=== PATIENT | male | born 1975 | race African-American/Black ===

== ENCOUNTER 2023-02-02 19:23 | Inpatient (IN) | payer SELFPAY ==
[2023-02-02 20:01] LABS: #Monocytes 1.1 10x3/uL (0.0-1.1); #Neutrophils 8.2 10x3/uL (1.5-8.4); %Basophils 0.4 % (0.0-2.0); %Eosinophils 0.2 % (0.0-6.0); %Lymphocytes 12.4 % (18.0-47.0); %Monocytes 10.1 % (0.0-10.0); %Neutrophils 76.3 % (40.0-75.0); Hematocrit 41.8 % (38.8-50.0); Hemoglobin 15.3 g/dL (13.5-17.5); Mean Corpuscular HGB CONC 36.6 g/dL (32.0-36.0); Mean Corpuscular Hemoglobin 34.4 pg (27.0-33.0); Mean Corpuscular Volume 93.9 fl (81.2-95.1); Platelet Count 345 10x3/uL (150-450); RBC Distribution Width 13.2 % (11.5-14.5); Red Blood Cell (RBC) Count 4.45 10x6/uL (4.32-5.72); White Blood Cell (WBC) Count 10.8 10x3/uL (3.5-10.5)
[2023-02-02 20:13] LABS: ALT (SGPT) 45 U/L (8-55); AST (SGOT) 113 U/L (5-34); Alkaline Phosphatase 110 U/L (40-110); Anion Gap 27 mmol/L (10-20); BUN (Urea Nitrogen) 31 mg/dL (8.9-20.6); Bilirubin, Total 3.8 mg/dL (0.2-1.2); Calc. Creatinine Clearance 0 mL/min (70-130); Calcium 9.7 mg/dL (7.8-10.44); Carbon Dioxide 16 mmol/L (22-29); Chloride 93 mmol/L (98-107); Estimated GFR 11; Globulin 4.6 g/dL (2.4-3.5); Glucose 143 mg/dL (70-105); Potassium 2.8 mmol/L (3.5-5.1); Protein, Total 9.6 g/dL (6.0-8.3); Sodium 133 mmol/L (136-145)
[2023-02-02 20:19] LABS: Troponin I 0.256 ng/mL (< 0.028)
[2023-02-02 20:37] LABS: Magnesium 1.8 mg/dL (1.6-2.6)
[2023-02-02 20:41] LABS: Acetaminophen Less than 10 mcg/mL (10.0-30.0); Alcohol Less than 10.0 mg/dL (Less than 10); Salicylate Less than 8.0 mg/dL (15.0-30.0)
[2023-02-02 20:50] LABS: CK (CPK) 5766 U/L (30-200)
[2023-02-02] MEDS ORDERED: Heparin 25,000 units/D5W 500 ML ONE (21:50)
[2023-02-02 21:57] LABS: INR-International Normal Ratio 1.1; PTT 29.1 sec (22.0-33.0); Prothrombin Time 11.9 sec (9.5-12.1)
[2023-02-02] MEDS ORDERED: Potassium Chloride 20 MEQ in Premix Bag 1 BAG IVPB SCH (22:00)
[2023-02-02] MEDS ORDERED: Acetaminophen 325 MG TAB PO PRN (22:30)
[2023-02-02] MEDS ORDERED: Morphine 2 MG/ML VIAL SLOW IVP PRN (22:37)
[2023-02-02] MEDS ORDERED: Heparin 25,000 units/D5W 500 ML IVPB SCH (22:45)
[2023-02-02] MEDS ORDERED: Heparin 10,000 UNITS/ 10 ML VIAL SLOW IVP SCH (22:45)
[2023-02-02 22:57] LABS: Troponin I 0.265 ng/mL (< 0.028)
[2023-02-02 22:58] LABS: Anion Gap 15 mmol/L (10-20); BUN (Urea Nitrogen) 10 mg/dL (8.9-20.6); Calc. Creatinine Clearance 0 mL/min (70-130); Calcium 8.9 mg/dL (7.8-10.44); Carbon Dioxide 20 mmol/L (22-29); Chloride 107 mmol/L (98-107); Estimated GFR 105; Glucose 93 mg/dL (70-105); Sodium 138 mmol/L (136-145)
[2023-02-02 22:59] LABS: Hematocrit 40.9 % (38.8-50.0); Hemoglobin 14.8 g/dL (13.5-17.5); Platelet Count 323 10x3/uL (150-450)
[2023-02-02 23:43] LABS: Anion Gap 27 mmol/L (10-20); BUN (Urea Nitrogen) 33 mg/dL (8.9-20.6); Calc. Creatinine Clearance 0 mL/min (70-130); Calcium 9.6 mg/dL (7.8-10.44); Carbon Dioxide 18 mmol/L (22-29); Chloride 92 mmol/L (98-107); Estimated GFR 11; Glucose 94 mg/dL (70-105); Potassium 3.5 mmol/L (3.5-5.1); Sodium 133 mmol/L (136-145)
[2023-02-03 00:07] LABS: Troponin I 0.253 ng/mL (< 0.028)
[2023-02-03] MEDS: Sodium Chloride 0.9% 1,000 ML IV SCH ×3 (00:27→10:43)
[2023-02-03 02:06] VITALS: BMI 27.3
[2023-02-03 02:18] LABS: #Monocytes 1.4 10x3/uL (0.0-1.1); #Neutrophils 8.1 10x3/uL (1.5-8.4); %Basophils 0.3 % (0.0-2.0); %Monocytes 11.5 % (0.0-10.0); %Neutrophils 68.6 % (40.0-75.0); Hematocrit 40.6 % (38.8-50.0); Hemoglobin 14.4 g/dL (13.5-17.5); Mean Corpuscular HGB CONC 35.5 g/dL (32.0-36.0); Mean Corpuscular Hemoglobin 34.3 pg (27.0-33.0); Mean Corpuscular Volume 96.7 fl (81.2-95.1); Mean Platelet Volume 9.4 fl (7.4-10.4); Platelet Count 282 10x3/uL (150-450); RBC Distribution Width 13.3 % (11.5-14.5); White Blood Cell (WBC) Count 11.8 10x3/uL (3.5-10.5)
[2023-02-03 02:39] LABS: Anion Gap 23 mmol/L (10-20); BUN (Urea Nitrogen) 35 mg/dL (8.9-20.6); Calc. Creatinine Clearance 18 mL/min (70-130); Calcium 8.8 mg/dL (7.8-10.44); Carbon Dioxide 19 mmol/L (22-29); Chloride 93 mmol/L (98-107); Estimated GFR 11; Glucose 104 mg/dL (70-105); Potassium 3.8 mmol/L (3.5-5.1); Sodium 131 mmol/L (136-145)
[2023-02-03 02:48] LABS: Troponin I 0.235 ng/mL (< 0.028)
[2023-02-03 03:14] LABS: Magnesium 1.9 mg/dL (1.6-2.6); Phosphorus 6.3 mg/dL (2.3-4.7)
[2023-02-03 06:45] LABS: Anion Gap 20 mmol/L (10-20); BUN (Urea Nitrogen) 36 mg/dL (8.9-20.6); Calc. Creatinine Clearance 20 mL/min (70-130); Calcium 8.5 mg/dL (7.8-10.44); Carbon Dioxide 19 mmol/L (22-29); Chloride 96 mmol/L (98-107); Estimated GFR 12; Glucose 93 mg/dL (70-105); Potassium 3.3 mmol/L (3.5-5.1); Sodium 132 mmol/L (136-145)
[2023-02-03] MEDS ORDERED: Potassium Chloride 20 MEQ TAB PO SCH (08:00)
[2023-02-03 09:38] LABS: Anion Gap 16 mmol/L (10-20); BUN (Urea Nitrogen) 37 mg/dL (8.9-20.6); CK (CPK) 3726 U/L (30-200); Calc. Creatinine Clearance 23 mL/min (70-130); Calcium 8.1 mg/dL (7.8-10.44); Carbon Dioxide 22 mmol/L (22-29); Chloride 94 mmol/L (98-107); Estimated GFR 14; Glucose 133 mg/dL (70-105); Potassium 3.2 mmol/L (3.5-5.1); Sodium 129 mmol/L (136-145)
[2023-02-03 09:48] LABS: ALT (SGPT) 36 U/L (8-55); AST (SGOT) 79 U/L (5-34); Alkaline Phosphatase 95 U/L (40-110); Bilirubin, Direct 0.8 mg/dL (0.1-0.3); Bilirubin, Total 1.9 mg/dL (0.2-1.2); Protein, Total 7.3 g/dL (6.0-8.3)
[2023-02-03] MEDS: Aspirin Chewable 81 MG TAB PO SCH (10:44)
[2023-02-03] MEDS ORDERED: Lorazepam 1 MG TAB PO PRN (14:09)
[2023-02-03] MEDS ORDERED: Lorazepam 2 MG/ML VIAL IM PRN (14:09)
[2023-02-03] MEDS ORDERED: Ondansetron ODT 4 MG TAB PO PRN (14:09)
[2023-02-03] MEDS ORDERED: Electrolyte Replacement Protocol 1 EACH FS SCH (14:15)
[2023-02-03] MEDS ORDERED: Multivit, Therapeutic 1 TAB PO SCH (15:00)
[2023-02-03] MEDS ORDERED: Folic Acid 1 MG TAB PO SCH (15:00)
[2023-02-03 15:13] LABS: Amphetamine Detected (NotDetected); Barbiturates Screen Not Detected (NotDetected); Benzodiazepine Screen Not Detected (NotDetected); Cocaine Metabolite Screen Detected (NotDetected); Methadone Not Detected (NotDetected); Methamphetamine Detected (NotDetected); Opiate Screen Not Detected (NotDetected); Oxycodone Screen Not Detected (NotDetected); Phencyclidine (PCP) Not Detected (NotDetected); THC/Cannabinoid Screen Not Detected (NotDetected); Tricyclic Screen Not Detected (NotDetected)
[2023-02-03 15:19] LABS: Anion Gap 16 mmol/L (10-20); BUN (Urea Nitrogen) 40 mg/dL (8.9-20.6); Calc. Creatinine Clearance 25 mL/min (70-130); Calcium 8.2 mg/dL (7.8-10.44); Carbon Dioxide 19 mmol/L (22-29); Chloride 98 mmol/L (98-107); Estimated GFR 16; Glucose 99 mg/dL (70-105); Potassium 3.4 mmol/L (3.5-5.1); Sodium 130 mmol/L (136-145)
[2023-02-03] MEDS: Lactated Ringer's 1,000 ML IV SCH ×2 (15:25)
[2023-02-03] MEDS: Lorazepam 1 MG TAB PO SCH ×2 (15:26→22:59)
[2023-02-03] MEDS: Thiamine HCl 200 MG/2 ML VIAL SLOW IVP SCH (15:28)
[2023-02-03 18:12] LABS: Anion Gap 16 mmol/L (10-20); BUN (Urea Nitrogen) 41 mg/dL (8.9-20.6); Calc. Creatinine Clearance 32 mL/min (70-130); Calcium 8.5 mg/dL (7.8-10.44); Carbon Dioxide 20 mmol/L (22-29); Chloride 100 mmol/L (98-107); Estimated GFR 22; Glucose 114 mg/dL (70-105); Potassium 3.3 mmol/L (3.5-5.1); Sodium 133 mmol/L (136-145)
[2023-02-04] MEDS: Lactated Ringer's 1,000 ML IV SCH ×6 (01:34→22:46)
[2023-02-04] MEDS: Lorazepam 1 MG TAB PO SCH ×4 (05:34→20:50)
[2023-02-04 08:13] LABS: #Monocytes 0.5 10x3/uL (0.0-1.1); #Neutrophils 2.7 10x3/uL (1.5-8.4); %Basophils 0.5 % (0.0-2.0); %Eosinophils 0.5 % (0.0-6.0); %Lymphocytes 26.4 % (18.0-47.0); %Monocytes 10.6 % (0.0-10.0); %Neutrophils 61.5 % (40.0-75.0); Hematocrit 34.5 % (38.8-50.0); Hemoglobin 12.3 g/dL (13.5-17.5); Mean Corpuscular HGB CONC 35.7 g/dL (32.0-36.0); Mean Corpuscular Hemoglobin 34.5 pg (27.0-33.0); Mean Corpuscular Volume 96.6 fl (81.2-95.1); Mean Platelet Volume 9.2 fl (7.4-10.4); Platelet Count 223 10x3/uL (150-450); RBC Distribution Width 13.2 % (11.5-14.5); Red Blood Cell (RBC) Count 3.57 10x6/uL (4.32-5.72); White Blood Cell (WBC) Count 4.4 10x3/uL (3.5-10.5)
[2023-02-04 08:22] LABS: ALT (SGPT) 32 U/L (8-55); AST (SGOT) 50 U/L (5-34); Albumin 3.7 g/dL (3.5-5.0); Alkaline Phosphatase 102 U/L (40-110); Anion Gap 13 mmol/L (10-20); BUN (Urea Nitrogen) 33 mg/dL (8.9-20.6); Bilirubin, Total 0.6 mg/dL (0.2-1.2); CK (CPK) 1625 U/L (30-200); Calc. Creatinine Clearance 62 mL/min (70-130); Calcium 8.6 mg/dL (7.8-10.44); Carbon Dioxide 21 mmol/L (22-29); Chloride 105 mmol/L (98-107); Estimated GFR 49; Globulin 3.4 g/dL (2.4-3.5); Glucose 103 mg/dL (70-105); Potassium 3.6 mmol/L (3.5-5.1); Protein, Total 7.1 g/dL (6.0-8.3); Sodium 135 mmol/L (136-145)
[2023-02-04] MEDS: Amlodipine 10 MG TAB PO SCH (09:28)
[2023-02-04] MEDS: Multivit, Therapeutic 1 TAB PO SCH (09:28)
[2023-02-04] MEDS: Folic Acid 1 MG TAB PO SCH (09:28)
[2023-02-04] MEDS: Aspirin Chewable 81 MG TAB PO SCH (09:30)
[2023-02-04] MEDS ORDERED: Lorazepam 1 MG TAB PO PRN (14:09)
[2023-02-04] MEDS: Thiamine HCl 200 MG/2 ML VIAL SLOW IVP SCH (14:39)
[2023-02-04 22:29] LABS: Hematocrit 33.4 % (38.8-50.0); Hemoglobin 11.7 g/dL (13.5-17.5); Platelet Count 243 10x3/uL (150-450)
[2023-02-05] MEDS: Lactated Ringer's 1,000 ML IV SCH ×3 (01:20→16:50)
[2023-02-05] MEDS: Lorazepam 1 MG TAB PO SCH ×2 (01:21→09:04)
[2023-02-05] MEDS: Folic Acid 1 MG TAB PO SCH (09:04)
[2023-02-05] MEDS: Amlodipine 10 MG TAB PO SCH (09:04)
[2023-02-05] MEDS: Aspirin Chewable 81 MG TAB PO SCH (09:04)
[2023-02-05] MEDS: Multivit, Therapeutic 1 TAB PO SCH (09:05)
[2023-02-05] MEDS ORDERED: hydrALAZINE 20 MG/ML VIAL SLOW IVP PRN (10:40)
[2023-02-05] MEDS ORDERED: hydrALAZINE 20 MG/ML VIAL SLOW IVP SCH (11:00)
[2023-02-05 13:50] VITALS: BP 182/100
[2023-02-05] MEDS ORDERED: Lorazepam 1 MG TAB PO PRN (14:09)
[2023-02-05 16:19] LABS: ANA Symphony (Qualitative) Negative (Negative); ANA Symphony (Quantitative) 0.4 Ratio (< 0.7 Negative); dsDNA IgG Antibody 2.1 IU/mL (<10 Negative)
[2023-02-05] MEDS: Thiamine HCl 200 MG/2 ML VIAL SLOW IVP SCH (16:50)
[2023-02-05 18:08] VITALS: TEMP 98
[2023-02-06] MEDS ORDERED: Thiamine 100 MG TAB PO SCH (09:00)
[2023-02-06] MEDS ORDERED: Lorazepam 0.5 MG TAB PO PRN (14:09)
== END 2023-02-05 18:48 | disposition left against medical advice (07) | DRG 683 ==
LOC: EEVIPCON 19:23 → SUATTDRO 19:23 → CSHERS 19:23 → CSHTELE 02-03 00:08
PROVIDERS: ADMIT Family Medicine; ATTEND Internal Medicine
DX: N17.9 Acute kidney failure, unspecified (principal); E87.1 Hypo-osmolality and hyponatremia; M62.82 Rhabdomyolysis; E87.6 Hypokalemia; I12.9 Hypertensive chronic kidney disease with stage 1 through stage 4 chronic kidney disease, or unspecified chronic kidney disease; N18.30 Chronic kidney disease, stage 3 unspecified; F10.20 Alcohol dependence, uncomplicated
CPT/HCPCS: 36415; 71045; 80048; 80053; 80076; 80306; 80307; 82550; 83735; 84100; 84443; 84484; 85014; 85018; 85025; 85049; 85610; 85730; 86038; 86225; 87086; 93005; 93010; 93306; 94760; J0360; J1644; J3411; J3480; J7050; J7120